=== PATIENT | male | born 1955 | race Caucasian/White ===

== ENCOUNTER 2016-09-22 21:28 | Emergency (ER) | payer OTHER ==
[~2016-09-22] VITALS: Ht 182.9 cm; Wt 124.1 kg
[~2016-09-22 21:28] MED LIST: NOHOMEMEDS
[2016-09-22 23:52] LABS: EOSINOPHIL (%) 0.4 % (0-5); HEMATOCRIT 46.2 % (38.0-50.0); IMMATURE GRANULOCYTE (%) 0.2 % (0.0-0.7); IMMATURE GRANULOCYTE COUNT 0.2 K/uL; MCH 31.5 PG (29.0-34.0); MCHC 34.8 G/DL (30.0-36.0); MCV 90.4 FL (86-99); MEAN PLAT.VOLUME 10.5 uM^3 (9.0-12.4); MONOCYTE (%) 5.6 % (3-12); MONOCYTE COUNT 0.6 K/uL (0-0.8); NEUTROPHIL COUNT 8.9 K/uL (1.8-6.4); PLATELET COUNT 225 K/uL (156-360); RBC DIS.WIDTH-CV 11.6 % (11.8-14.6); RBC DIS.WIDTH-SD 37.4 % (39-53); RED BLOOD COUNT 5.11 M/uL (4.00-5.50)
[2016-09-22 23:53] LABS: WHITE BLOOD COUNT 10.6 K/uL (4.1-10.2)
[2016-09-23] LABS: CHLORIDE 100 mEq/L (99-109); POTASSIUM 4.6 mEq/L (3.7-5.4); SODIUM 137 mEq/L (136-147)
[2016-09-23 00:03] LABS: GLUCOSE 130 mg/dL (70-99)
[2016-09-23 00:04] LABS: ANION GAP 12 MEQ/L (2-14); TOTAL BILIRUBIN 0.8 mg/dL (0.0-1.0)
[2016-09-23 00:06] LABS: ALKALINE PHOSPHATASE 63 IU/L (3-129); GFR ESTIMATE (CALCULATED) > 59 mL/min/
[2016-09-23 00:07] LABS: UREA NITROGEN (BUN) 15 mg/dL (9-23)
[2016-09-23 00:10] LABS: LIPASE 15 U/L (1.0-51.0)
[2016-09-23 02:42] VITALS: BP 146/88
== END 2016-09-23 02:47 | disposition home or self-care (01) ==
LOC: EME 21:28
PROVIDERS: Emergency Medicine
DX: K56.41 Fecal impaction (principal)
CPT/HCPCS: 74177; 80053; 83690; 85025; 99281; 99284; J7030